=== PATIENT | male | born 1955 | race Two or more races ===

== ENCOUNTER 2016-07-29 12:53 | Emergency (ER) | payer OTHER ==
[2016-07-29 13:04] VITALS: BP 141/75; PULSE 70; TEMP 97.8; BMI 25.7
--- NOTE | 2016-07-29 13:36 | PDOC ---
History of Present Illness - General History Source: Patient Exam Limitations: No Limitations - History of Present Illness Initial Comments: 07/29/16 13:37 The patient is 61 a year old male with a significant past medical history of hypertension, hyperlipidemia, and GERD, sent from home by PCP to the Emergency Department with chest pain this morning. The patient reports that he was woken from sleep at 1:30 am by a burning sensation in his mid chest, nonradiating. Reports that the sensation resolved and returned in a few minutes this morning. He admits that Dr. Kurtz suggested he come to the ED this morning. He admits that the burning sensation to his chest resolved when he arrived to the ED. He reports that he was at his doctors office yesterday for high blood pressure, 169/99. The patient denies diet of fatty food. Patient denies palpitations, diaphoresis , and shortness of breath. Patient denies difficulty breathing. Patient denies fever, cough, and chills. Patient denies nausea, vomiting, and diarrhea. Structural Drafter: Dr. Kurtz <Malika Wu - Last Filed: 07/29/16 14:35> - General History Source: Patient Exam Limitations: No Limitations <Germán Pitt - Last Filed: 07/29/16 14:46> - General Chief Complaint: Palpitations Stated Complaint: PALPITATIONS Time Seen by Provider: 07/29/16 13:07 Past History <Malika Wu - Last Filed: 07/29/16 14:35> - Past Medical History HTN: Yes - Psycho/Social/Smoking Cessation Hx Suicidal Ideation: No Smoking History: Never smoked Have you smoked in the past 12 months: No Information on smoking cessation initiated: No Hx Alcohol Use: Yes (socially) Drug/Substance Use Hx: No Substance Use Type: None <Germán Pitt - Last Filed: 07/29/16 14:46> - Past Medical History Allergies/Adverse Reactions: Allergies Allergy/AdvReac Type Severity Reaction Status Date / Time No Known Allergies Allergy Verified 07/29/16 13:04 Home Medications: Ambulatory Orders Unobtainable [Unobtainable] 07/29/16 Review of Systems - Review of Systems Able to Perform ROS?: Yes Comments:: 07/29/16 13:37 CONSTITUTIONAL: No reported: Fever, Chills, Diaphoresis, Generalized Weakness, Malaise, Loss of Appetite HEENT: No reported: Rhinorrhea, Nasal Congestion, Throat Pain, Throat Swelling, Difficulty Swallowing, Mouth Swelling, Ear Pain, Eye Pain, Visual Changes CARDIOVASCULAR: Reported: + burning chest pain (Resolved) No reported: Syncope, Palpitations, Irregular Heart Rate, Lightheadedness, Peripheral Edema RESPIRATORY: No reported: Cough, Shortness of Breath, SOB with Exertion, Orthopnea, Wheezing , Stridor, Hemoptysis GASTROINTESTINAL: No reported: Abdominal pain, Abdominal Distension, Nausea, Vomiting, Diarrhea, Constipation, Melena, Hematochezia GENITOURINARY: No reported: Dysuria, Frequency, Urgency, Hesitancy, Flank Pain, Genital Pain MUSCULOSKELETAL: No reported: Myalgia, Arthralgia, Joint Swelling, Back pain, Neck Pain SKIN: No reported: Rash, Itching, Pallor HEMATOLOGIC/IMMUNOLOGIC: No reported: Easy Bleeding, Easy Bruising, Lymphadenopathy, Frequent infections ENDOCRINE: No reported: Unexplained Weight Gain, Unexplained Weight Loss, Heat Intolerance , Cold Intolerance NEUROLOGIC: No reported: Headache, Focal Weakness, Paresthesias, Vertigo, Lightheadedness, Unsteady Gait, Seizure, Mental Status Changes, Incontinence PSYCHIATRIC: No reported: Anxiety, Depression <Malika Wu - Last Filed: 07/29/16 14:35> *Physical Exam - Vital Signs Last Vital Signs Temp Pulse Resp BP Pulse Ox 97.8 F 70 14 141/75 100 07/29/16 12:56 07/29/16 12:56 07/29/16 12:56 07/29/16 12:56 07/29/16 12:56 - Physical Exam Comments: 07/29/16 13:37 GENERAL: The patient is awake, alert, and fully oriented, Nontoxic - in no acute distress. HEAD: Normocephalic, atraumatic. EYES: extraocular movements intact, sclera anicteric, conjunctiva clear. ENT: Normal voice, Moist mucous membranes. NECK: Normal range of motion, No JVD LUNGS: Breath sounds equal, clear to auscultation bilaterally. No wheezes, no rhonchi, no rales. HEART: Regular rate and rhythm, normal S1 and S2 without murmur, rub or gallop. ABDOMEN: Soft, nontender, normoactive bowel sounds. No guarding, no rebound. No masses. No CVA tenderness EXTREMITIES: Normal range of motion, no edema. No clubbing or cyanosis. No cords , erythema, or tenderness. NEUROLOGICAL: No facial asymmetry, Normal speech, normal gait. PSYCH: Normal mood, normal affect. SKIN: Warm, Dry, normal turgor. <Malika Wu - Last Filed: 07/29/16 14:35> - Vital Signs Last Vital Signs Temp Pulse Resp BP Pulse Ox 97.8 F 70 14 141/75 100 07/29/16 12:56 07/29/16 12:56 07/29/16 12:56 07/29/16 12:56 07/29/16 12:56 <Germán Pitt - Last Filed: 07/29/16 14:46> Heart Score/ECG Review - History History: Slightly suspicious - Electrocardiogram EKG: Non specific repolarization disturbance - Age Age: >/= 65 - Risk Factors Risk Factors Heart Score: Yes Hx Hypercholesterolemia, Yes Hx Hypertension Based on the list above the patient has:: 1-2 risk factors - Troponin Troponin: </= normal limit - Score Heart Score - Total: 4 #1 ECG reviewed & interpreted by me at: 13:00 07/29/16 13:34 Vital Signs Temp Pulse Resp BP Pulse Ox 97.8 F 70 14 141/75 100 07/29/16 12:56 07/29/16 12:56 07/29/16 12:56 07/29/16 12:56 07/29/16 12:56 NSR 64, left axis deviation, incomplete RBBB, +LVH, no std/javier, QTC 416 msec <Germán Pitt - Last Filed: 07/29/16 14:46> ED Treatment Course - LABORATORY CBC & Chemistry Diagram: 07/29/16 13:17 07/29/16 13:17 <Malika Wu - Last Filed: 07/29/16 14:35> - LABORATORY CBC & Chemistry Diagram: 07/29/16 13:17 07/29/16 13:17 <Germán Pitt - Last Filed: 07/29/16 14:46> Medical Decision Making - Medical Decision Making 07/29/16 14:35 Dr. Kurtz was over head paged. Dr. Kurtz returned call and spoke to Dr. Pitt about the patient's care. <Malika Wu - Last Filed: 07/29/16 14:35> - Medical Decision Making 07/29/16 14:43 A portion of this note was documented by scribe services under my direction. I have reviewed the details of the note, within reason, and agree with the documentation with the following case summary and management plan written by me. Patient treated in the ED. Nursing notes are reviewed and incorporated into the medical decision-making. Vital signs reviewed. Peripheral IV access obtained by the nurse, laboratory studies are drawn and sent, reviewed and interpreted by myself. 61-year-old male with history of hypertension, hyperlipidemia presents to the emergency department for chest discomfort. Patient reports that he ate a salad, "chicken with lots spices and went to bed. Woke up at approximately 1:00 in the morning with chest burning-like sensation with no associated shortness of breath , diaphoresis, vomiting, radiation. State that the pain resolved by itself the patient went back to bed. 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 Patient's supervisor concrete stone finishing is Dr. Kurzt. I suspect that this is likely gastritis. However, given age and medical history , the patient will receive to troponins. I will touch base with the patient's supervisor concrete stone finishing. If workup is negative and the patient's effectively ruled out for myocardial infarction, the patient to pursue an outpatient stress test with his supervisor concrete stone finishing. CBC, BMP 07/29/16 13:17 07/29/16 13:17 CMP Sodium 138 mmol/L (136-145) 07/29/16 13:17 Potassium 4.0 mmol/L (3.5-5.1) 07/29/16 13:17 Chloride 97 mmol/L (98-107) L 07/29/16 13:17 Carbon Dioxide 31 mmol/L (21-32) 07/29/16 13:17 Anion Gap 10 (8-16) 07/29/16 13:17 BUN 13 mg/dL (7-18) 07/29/16 13:17 Creatinine 0.9 mg/dL (0.7-1.3) 07/29/16 13:17 Creat Clearance w eGFR > 60 (>60) 07/29/16 13:17 Random Glucose 99 mg/dL (74-106) 07/29/16 13:17 Calcium 9.6 mg/dL (8.5-10.1) 07/29/16 13:17 Total Bilirubin 0.7 mg/dL (0.2-1.0) 07/29/16 13:17 AST 21 U/L (15-37) 07/29/16 13:17 ALT 25 U/L (12-78) 07/29/16 13:17 Alkaline Phosphatase 80 U/L (45-117) 07/29/16 13:17 Creatine Kinase 78 IU/L (39-308) 07/29/16 13:17 Troponin I < 0.02 ng/ml (0.00-0.05) 07/29/16 13:17 Total Protein 8.4 g/dl (6.4-8.2) H 07/29/16 13:17 Albumin 4.0 g/dl (3.4-5.0) 07/29/16 13:17 The patient isn't absolutely not interested in staying for a second troponin. However, given that the symptoms occurred approximately 12 hours ago, the patient can be cleared from an my perspective. I discussed that the patient does not want to wait for the second troponin with the patient's supervisor concrete stone finishing, Dr. Kurtz, and reports that this is okay and that the patient can follow- up in his office. Again, this is atypical chest pain. Given the risk factors though, the patient can follow-up as an outpatient. Return precautions given. Patient verbalizes agrees with plan. I discussed the physical exam findings, ancillary test results and final diagnoses with the patient. I answered all of the patient's questions. The patient was satisfied with the care received and felt comfortable with the discharge plan and treatment plan. The patient will call their primary care physician within 24 hours to arrange follow-up and will return to the Emergency Department with any new, persistant or worsening symptoms. <Germán Pitt - Last Filed: 07/29/16 14:46> *DC/Admit/Observation/Transfer - Attestations Scribe Attestion: 07/29/16 13:37 Documentation prepared by Malika Wu, acting as medical billing manager for Germán Pitt MD. <Malika Wu - Last Filed: 07/29/16 14:35> - Discharge Dispostion Admit: No <Edith Pittel - Last Filed: 07/29/16 14:46> Diagnosis at time of Disposition: Atypical chest pain - Discharge Dispostion Disposition: HOME Condition at time of disposition: Good - Referrals Referrals: Michael Kurtz MD [Staff Physician] - - Patient Instructions Printed Discharge Instructions: DI for Atypical Chest Pain Additional Instructions: Please follow-up with your supervisor concrete stone finishing. Call to schedule appointment.
[2016-07-29 14:08] LABS: BASOPHIL 1.5 % (0-2.0); EOSINOPHIL 3.4 % (0-4.5); MCH 30.2 pg (25.7-33.7); MCHC 33.4 g/dl (32.0-35.9); MEAN CELL VOLUME 90.4 fl (80-96); MEAN PLT VOLUME 9.1 fl (7.5-11.1); NEUTROPHILS 60.5 % (42.8-82.8); PLATELET COUNT 185 K/MM3 (134-434); RDW 13.8 % (11.9-15.9); WHITE BLOOD COUNT 6.8 K/mm3 (4.0-10.0)
[2016-07-29 14:35] LABS: ANION GAP 10 (8-16); CALCIUM 9.6 mg/dL (8.5-10.1); CO2 31 mmol/L (21-32); COCKROFT - GAULT 91.08; CREATININE 0.9 mg/dL (0.7-1.3); GLUCOSE,RANDOM 99 mg/dL (74-106); SGOT/AST 21 U/L (15-37); SGPT/ALT 25 U/L (12-78)
[2016-07-29 14:38] LABS: ALK PHOS 80 U/L (45-117); BILIRUBIN,TOTAL 0.7 mg/dL (0.2-1.0); TOT PROT 8.4 g/dl (6.4-8.2); TROPONIN I < 0.02 ng/ml (0.00-0.05)
--- NOTE | 2016-07-29 15:36 | EKG ---
Test Reason : Blood Pressure : / mmHG Vent. Rate : 064 BPM Atrial Rate : 064 BPM P-R Int : 180 ms QRS Dur : 114 ms QT Int : 404 ms P-R-T Axes : 022 -41 017 degrees QTc Int : 416 ms NORMAL SINUS RHYTHM LEFT AXIS DEVIATION INCOMPLETE RIGHT BUNDLE BRANCH BLOCK MINIMAL VOLTAGE CRITERIA FOR LVH, MAY BE NORMAL VARIANT ABNORMAL ECG NO PREVIOUS ECGS AVAILABLE Confirmed by CLIFTON QUINTERO MD ([id number]) on 07/29/2016 3:36:50 PM Referred By: Confirmed By:CLIFTON QUINTERO MD
== END 2016-07-29 14:53 | disposition home or self-care (01) ==
LOC: JER 12:53
DX: R07.89 Other chest pain (principal); I10 Essential (primary) hypertension; E78.5 Hyperlipidemia, unspecified; K21.9 Gastro-esophageal reflux disease without esophagitis
CPT/HCPCS: 36415; 80053; 82550; 84484; 85025; 93005; 93010; 99284-25